=== PATIENT | female | born 1950 | race African-American/Black ===

== ENCOUNTER 2016-08-06 17:25 | Inpatient (IN) | payer MEDICARE, OTHER ==
[~2016-08-06] VITALS: Ht 160 cm; Wt 102.3 kg
[~2016-08-06 17:25] MED LIST: ARIP10TA13 PO; ASPI81TA3 PO; BACL10TA PO; BENA10TA48 PO; CELE200C PO; LETR2.5T PO; LORA10CA PO; TRAZ150T65 PO; ZOF8 PO
--- NOTE | 2016-08-06 17:34 | ERA ---
ER Documentation Chief Complaint Date/Time DATE: 08/06/16 TIME: 17:33 Chief Complaint Chest pain HPI The patient is a 65-year-old female, presenting to the ER because of left-sided chest pain that is associated with shortness of breath for the last couple days. She went to the clinic where she was transferred to the ER. She was treated by EMS with aspirin 160 mg p.o. and 2 nitroglycerin spray with some response. The chest pain is worse with movement and with cough. She denies chest pain with exertion of vomiting or diaphoresis. She denies abdominal pain , vomiting, dysuria, diarrhea. She does not smoke nor drink Past medical history: Hypertension, diabetes mellitus Past surgical history: Left lumpectomy, tubal ligation ROS All systems reviewed and are negative except as per history of present illness. Medications Home Meds Reported Medications [Combivent 18-103G] No Conflict Check, 2 PUFF PO BID 08/06/16 Bupropion Hcl* (Wellbutrin XL*) 150 Mg Tab.sr.24h, 150 MG PO DAILY, TAB.SA 08/06/16 Celecoxib* (Celebrex*) 200 Mg Capsule, 200 MG PO BID, CAP 08/06/16 Mometasone-Formoterol (Dulera) 200-5 Mcg/Inh - 13 Gm Hfa.aer.ad, 2 PUFFS INHALATION BID, #1 INHALER 08/06/16 Albuterol Sulfate* (Albuterol Sulfate* Neb) 0.083%-3 Ml Neb, 2.5 MG NEB BID, # 30 VIAL 08/06/16 Letrozole* (Letrozole*) 2.5 Mg Tablet, 2.5 MG PO DAILY, TAB 08/06/16 Trazodone Hcl* (Trazodone Hcl*) 50 Mg Tablet, 25 MG PO QHS, #30 TAB 08/06/16 Bisacodyl* (Bisacodyl*) 5 Mg Tablet.dr, 5 MG PO DAILY, TAB 08/06/16 Losartan Potassium* (Losartan Potassium*) 25 Mg Tablet, 25 MG PO DAILY, TAB 08/06/16 Calcium Carbonate/Vitamin D3 (Os-Jose 500-Vit D3 200 Caplet) 1 Each Tablet, 2 TAB PO DAILY, TAB 08/06/16 Abacavir/Dolutegravir/Lamivudi (Triumeq Tablet) 1 Each Tablet, 1 EACH PO DAILY, TAB [id number] 08/06/16 Aspirin* (Aspirin* Chew) 81 Mg Tab.chew, 81 MG PO DAILY, TAB.CHEW 08/06/16 Fluconazole* (Fluconazole*) 100 Mg Tablet, 100 MG PO DAILY, TAB 08/06/16 Insulin Glargine* (Lantus*) 100 Unit/Ml Soln, 20 UNIT SC QHS, #1 VIAL 08/06/16 Discontinued Reported Medications Benazepril Hcl* (Benazepril Hcl*) 10 Mg Tablet, 10 MG PO DAILY, TAB 01/08/14 Loratadine* (Claritin*) 10 Mg Capsule, 10 MG PO DAILY, CAP 01/08/14 Trazodone Hcl* (Trazodone Hcl*) 150 Mg Tablet, 150 MG PO HS, TAB 01/08/14 Letrozole* (Letrozole*) 2.5 Mg Tablet, 2.5 MG PO DAILY, TAB 01/08/14 Celecoxib* (Celebrex*) 200 Mg Capsule, 200 MG PO BID, CAP 01/08/14 Aspirin* (Aspirin* Chew) 81 Mg Tab.chew, 81 MG PO DAILY, TAB.CHEW 01/08/14 Aripiprazole* (Abilify*) 10 Mg Tablet, 10 MG PO DAILY 10/10/12 Ondansetron Hcl* (Zofran*) 8 Mg Tab, 8 MG PO DAILY 05/12/12 Baclofen* (Baclofen*) 10 Mg Tablet, 10 MG PO DAILY 05/07/12 Allergies Allergies: Coded Allergies: ketorolac (Verified Adverse Reaction, Intermediate, MOUTH SORES, 08/06/16) PMhx/Soc History of Surgery: Yes (LUMPECTOMY,TUBAL LIGATION,ABD HERNIA REPAIR) Anesthesia Reaction: No Hx Neurological Disorder: No Hx Respiratory Disorders: No Hx Cardiac Disorders: Yes (HTN) Hx Psychiatric Problems: No Hx Miscellaneous Medical Probl: Yes (DM) Hx Alcohol Use: No Hx Substance Use: No Hx Tobacco Use: No Smoking Status: Former smoker Physical Exam Vitals Vital Signs Date Time Temp Pulse Resp B/P Pulse Ox O2 Delivery O2 Flow Rate FiO2 08/06/16 18:55 71 18 132/67 100 Nasal Cannula 3.0 08/06/16 17:58 Nasal Cannula 2 Physical Exam Const: No acute distress. Head: Atraumatic. Eyes: Normal Conjunctiva. ENT: Normal External Ears, Nose and Mouth. Neck: Full range of motion. No meningismus. Resp: Clear to auscultation bilaterally. Cardio: Regular rate and rhythm, no murmurs. Abd: Soft, non distended, normal bowel sounds, non tender. Skin: No petechiae or rashes. Back: No midline or flank tenderness. Ext: No cyanosis, or edema. Neur: Awake and alert. No focal deficit Psych: Normal Mood and Affect. Result Diagram: 08/06/16181908/06/161819 Results 24 hrs Laboratory Tests Test 08/06/16 18:20 White Blood Count 5.610^3/ul Red Blood Count 4.0110^6/ul Hemoglobin 12.5g/dl Hematocrit 37.4% Mean Corpuscular Volume 93.3fl Mean Corpuscular Hemoglobin 31.2pg Mean Corpuscular Hemoglobin Concent 33.4g/dl Red Cell Distribution Width 13.1% Platelet Count 30766^3/UL Mean Platelet Volume 8.4fl Neutrophils % 65.3% Lymphocytes % 23.0% Monocytes % 8.8% Eosinophils % 2.0% Basophils % 0.2% Nucleated Red Blood Cells % 0.0/100WBC Neutrophils # 3.710^3/ul Lymphocytes # 1.310^3/ul Monocytes # 0.510^3/ul Eosinophils # 0.110^3/ul Basophils # 0.010^3/ul Nucleated Red Blood Cells # 0.010^3/ul Prothrombin Time 12.6Sec Prothrombin Time Ratio 1.0 INR International Normalized Ratio 0.94 Activated Partial Thromboplast Time 26.0Sec Sodium Level 138mmol/L Potassium Level 4.2mmol/L Chloride Level 104mmol/L Carbon Dioxide Level 23mmol/L Anion Gap 15 Blood Urea Nitrogen 14mg/dl Creatinine 0.86mg/dl Glucose Level 233mg/dl Calcium Level 9.2mg/dl Troponin I < 0.012ng/ml Current Medications Medications (Trade) Dose Ordered Sig/Karl Route PRN Reason Start Time Stop Time Status Last Admin Dose Admin Morphine Sulfate (morphine) 2 mg ONCE STAT IV 08/06/16 17:35 08/06/16 17:36 DC 08/06/16 17:53 Ondansetron HCl (Zofran Inj) 4 mg ONCE STAT IV 08/06/16 17:35 08/06/16 17:36 DC 08/06/16 17:52 Morphine Sulfate (morphine) 4 mg ONCE STAT IV 08/06/16 19:11 08/06/16 19:13 DC 08/06/16 19:39 Ondansetron HCl (Zofran Inj) 4 mg ONCE STAT IV 08/06/16 19:11 08/06/16 19:13 DC 08/06/16 19:39 Procedures/[place] [address] Radiology Main Line: [phone] DIAGNOSTIC IMAGING REPORT Patient: FRANKLYN IRIZARRY : 1950 Age: 65 Sex: F MR #: [id number] DOS: 08/06/16 1735 Ordering MD: CLEMENT JIMENEZ MD Location: E/R Room/Bed: PROCEDURE: XR Chest. CLINICAL INDICATION: Chest pain. TECHNIQUE: Single frontal view of the chest. COMPARISON: 12/09/2012. FINDINGS: Cardiomegaly. The lungs are clear. No signs of pleural fluid or pneumothorax are seen. The osseous structures and soft tissues are unremarkable. Surgical vascular clips over the left axilla region, similar in appearance examination 12/09/2012. IMPRESSION: No evidence for active cardiopulmonary disease. RPTAT: [facility] Physician Asif Date Time Electronically viewed and signed by Physician Asif on 08/06/2016 18:53 RS/ CC: CLEMENT JIMENEZ MD EKG: At 5:57 PM read by emergency physician Rate/Rhythm: Normal Sinus Rhythm 79 beats/min QRS, ST, T-waves: No ST elevation, no T inversion, PVC Impression: Abnormal EKG EKG: At 7:20 PM read by emergency physician Rate/Rhythm: Normal Sinus Rhythm 63 beats/min QRS, ST, T-waves: No ST elevation, no T inversion Impression: Normal EKG MEDICAL MAKING DECISION: The patient is a 64-year-old female with multiple cardiac risk factors, presenting with acute chest pain that is concerning for ACS. She was treated with morphine 2 mg IV, 4 mg IV for pain and Zofran 4 mg IV 2 for nausea with good response. The differential diagnoses considered include but are not limited to acute coronary syndrome, acute myocardial infarction, pericarditis, pulmonary embolism , aortic dissection, pneumonia, pleural effusion, pneumothorax, GERD, chest wall pain. Departure Diagnosis: Primary Impression: Chest pain Condition: Stable Comments I discussed the findings with the patient. I discussed the patient with the on- call hospitalist Dr. Brambila at 8:50 PM who was made aware of the lab, the treatment, the patient condition. The patient is admitted to telemetry CLEMENT JIMENEZ MD August 06, 2016 17:34
[2016-08-06] MEDS ORDERED: morphine 2 MG INJ IV STA (17:35)
[2016-08-06] MEDS ORDERED: ONDANSETRON 4 MG INJ IV STA ×2 (17:35→19:11)
[2016-08-06 18:28] LABS: ADD SCAN DIFF NO
[2016-08-06 18:30] LABS: BASOPHILS % 0.2 % (0.0-2.0); EOSINOPHILS # 0.1 10^3/ul (0.0-0.5); HEMATOCRIT 37.4 % (37.0-47.0); HEMOGLOBIN 12.5 g/dl (12.0-16.0); LYMPHOCYTES # 1.3 10^3/ul (0.8-2.9); MEAN CORPUSCULAR HEMOGLOBIN 31.2 pg (29.0-33.0); MEAN CORPUSCULAR HGB CONC 33.4 g/dl (32.0-37.0); MEAN CORPUSCULAR VOLUME 93.3 fl (82.0-101.0); MEAN PLATELET VOLUME 8.4 fl (7.4-10.4); MONOCYTE # 0.5 10^3/ul (0.3-0.9); MONOCYTES % 8.8 % (0.0-11.0); NEUTROPHIL # 3.7 10^3/ul (1.6-7.5); NEUTROPHILS % 65.3 % (39.0-77.0); PLATELET COUNT 265 10^3/UL (140-415); RED BLOOD COUNT 4.01 10^6/ul (4.20-5.40); RED CELL DISTRIBUTION WIDTH 13.1 % (11.5-14.5); WHITE BLOOD COUNT 5.6 10^3/ul (4.8-10.8)
[2016-08-06 18:44] LABS: INR 0.94; PROTIME 12.6 Sec (12.2-14.2)
[2016-08-06] MEDS ORDERED: LANT3I SC (18:48)
[2016-08-06] MEDS ORDERED: FLUC100T39 PO (18:49)
[2016-08-06] MEDS ORDERED: ASPI81TA3 PO (18:52)
[2016-08-06] MEDS ORDERED: ABAC1TAB12 PO (18:53)
--- NOTE | 2016-08-06 18:53 | RADRPT ---
PROCEDURE: XR Chest. CLINICAL INDICATION: Chest pain. TECHNIQUE: Single frontal view of the chest. COMPARISON: 12/09/2012. FINDINGS: Cardiomegaly. The lungs are clear. No signs of pleural fluid or pneumothorax are seen. The osseous s tructures and soft tissues are unremarkable. Surgical vascular clips over the left axilla region, similar in appearance examination 12/09/2012. IMPRESSION: No evidence for active cardiopulmonary disease. RPTAT: [facility] Physician Asif Date Time Electronically viewed and signed by Physician Asif on 08/06/2016 18:53 RS/
[2016-08-06] MEDS ORDERED: CALC1TAB32 PO (18:54)
[2016-08-06] MEDS ORDERED: LOSA25TA5 PO (18:54)
[2016-08-06] MEDS ORDERED: TRAZ50TA18 PO (18:55)
[2016-08-06] MEDS ORDERED: BISA5TAB6 PO (18:55)
[2016-08-06 18:56] LABS: CHLORIDE 104 mmol/L (97-110); POTASSIUM 4.2 mmol/L (3.5-5.1); SODIUM 138 mmol/L (135-144)
[2016-08-06] MEDS ORDERED: LETR2.5T PO (18:56)
[2016-08-06] MEDS ORDERED: ALBU2.5V3 NEB (18:56)
[2016-08-06] MEDS ORDERED: MOME13HF INHALATION (18:57)
[2016-08-06] MEDS ORDERED: CELE200C PO (18:58)
[2016-08-06] MEDS ORDERED: BUPR-75 PO (18:58)
[2016-08-06 18:59] LABS: ANION GAP 15 (8-16); BLOOD UREA NITROGEN 14 mg/dl (7-20); CARBON DIOXIDE 23 mmol/L (21-31); CREATININE 0.86 mg/dl (0.44-1.00); GLUCOSE 233 mg/dl (70-220)
[2016-08-06 19:00] LABS: CALCIUM 9.2 mg/dl (8.4-10.2)
[2016-08-06] MEDS ORDERED: COMBIVENT PO (19:08)
[2016-08-06] MEDS ORDERED: morphine 4 MG/ML VIAL IV STA (19:11)
[2016-08-06 19:16] LABS: TROPONIN-I < 0.012 ng/ml (0.00-0.12)
[2016-08-06 22:10] VITALS: BP 143/70; RESP 20
[2016-08-06 22:38] VITALS: PULSE 86
[2016-08-06 23:14] VITALS: Ht 160 cm; Wt 102.3 kg
[2016-08-06] MEDS ORDERED: IPRATROPIUM PO SCH (23:30)
[2016-08-06] MEDS ORDERED: ALBUTEROL PO SCH (23:30)
[2016-08-06] MEDS ORDERED: morphine 2 MG INJ IV PRN (23:45)
[2016-08-06] MEDS ORDERED: DEXTROSE 50% 50 ML SYRINGE IV PRN ×2 (23:45)
[2016-08-06] MEDS ORDERED: GLUCAGON 1 MG INJ IM PRN (23:45)
[2016-08-06] MEDS ORDERED: GLUCOSE GEL 15 GRAM TUBE PO PRN ×2 (23:45)
[2016-08-06] MEDS ORDERED: GLUCOSE GEL 15 GRAM TUBE BUCCAL PRN (23:45)
[2016-08-07] VITALS (12 sets, daily range): BP systolic 138–159; BP diastolic 63–77; PULSE 80–88; RESP 18–20
[2016-08-07] MEDS ORDERED: ACETAMINOPHEN 325 MG TAB PO PRN
[2016-08-07] MEDS ORDERED: ONDANSETRON 4 MG INJ IV PRN
[2016-08-07] MEDS ORDERED: NITROGLYCERIN (SL) 0.4 MG TAB SL PRN
[2016-08-07 00:53] LABS: TROPONIN-I < 0.012 ng/ml (0.00-0.12)
[2016-08-07 01:15] LABS: CK-MB 1.12 ng/ml (0.0-2.4); CREATINE KINASE 112 IU/L (23-200)
[2016-08-07] MEDS: HEPARIN 5,000 UNIT/0.5 ML VIAL SC SCH ×3 (01:41→21:10)
[2016-08-07] MEDS: ATORVASTATIN 20 MG TAB PO SCH ×2 (01:42→21:08)
[2016-08-07] MEDS: ACCU-CHEK XX SCH (02:00)
[2016-08-07] MEDS: INSULIN GLARGINE [LANtus] 3 ML PEN SC SCH ×2 (02:57→21:07)
--- NOTE | 2016-08-07 07:30 | HP ---
DATE OF ADMISSION: 08/06/2016 TIME SEEN: 2300. CHIEF COMPLAINT: Chest pain. HISTORY OF PRESENT ILLNESS: The patient is a 65-year-old female with a history of hypertension, merry betes, COPD, GERD, depression/anxiety, breast lumpectomy on letrozole who presented to the Emergency Department complaining of chest pain. Chest pain is left-sided with no radiation, associated with shortness of breath but no nausea, vomiting or diaphoresis. She did also report some dry cough whic h exacerbates the chest pain. She actually went to the clinic and from there she was transferred to the ER for evaluation. When she presented to the ER, blood pressure was 132/67, heart rate 71, respiratory rate 18, tempera ture 97.6, oxygen saturation 100% on 3 liters. CBC and BMP are unremarkable except a glucose of 333. First troponin is negative. EKG shows a normal sinus rhythm with a rate of [address]-T wave abnormalities. Chest x-ray shows clear lungs with no fluid and was essentially unremarkable. She was given Zo anuja and morphine in the ER and she had already been given aspirin by EMS. REVIEW OF SYSTEMS: A 12-point review of systems performed and negative except as mentioned in the HP I. PAST MEDICAL HISTORY: As per HPI. PAST SURGICAL HISTORY: Tubal ligation and hernia repair and lumpectomy. SOCIAL HISTORY: Denied a history of tobacco, alcohol, illicit drug use. ALLERGIES: TORADOL. HOME MEDICATIONS: 1. . 2. Albuterol. 3. Losartan. 4. Aspirin. 5. Bupropion. 6. Celecoxib. 7. Abacavir. 8. Dolutegravir. 9. ____. 10. Bupropion. 11. Trazodone. 12. Calcium. 13. Vitamin D. 14. Dulera. 15. Insulin. 16. Combivent. 17. Dulcolax. PHYSICAL EXAMINATION: VITAL SIGNS: Stable. GENERAL: No acute distress but looked initially slightly anxious and sleepy but arousable. HEENT: No obvious head deformity. Pupils react to light. Extraocular muscles intact. CARDIOVASCULAR: Regular rate and rhythm. No extra sounds. LUNGS: Clear. ABDOMEN: Soft, nontender, nondistended. Positive bowel sounds. EXTREMITIES: No edema. NEUROLOGIC: No focal deficits. LABORATORY: Glucose 333. Otherwise, CBC and BMP are within normal limits and first troponin is nega tive. IMAGING: Chest x-ray is unremarkable. IMPRESSION: 1. Chest pain, need to rule out acute coronary syndrome (ACS). 2. Diabetes with hyperglycemia. 3. History of chronic obstructive pulmonary disease (COPD). 4. History of depression/anxiety. 5. History of gastroesophageal reflux disease (GERD). PLAN: Continue telemetry monitoring. She will be placed on aspirin, beta mayank, statin and will be provided as needed nitroglycerin and morphine. We will trend her troponins. Initial EKG as ment ioned without ST-T wave abnormality. We will obtain a 2D echo and we will consider a cardiology con sult. In the meantime, we will continue her home medications with adjustment as needed. We will ad just the insulin for better glycemic control. We will check A1c, a fasting lipid and TSH in the [facility]. Further workup and management per clinical course. Dictated By: KIMBERLEE MANLEY/EUGENIE Conf#: [id number] DID#: [id number]
[2016-08-07 07:45] LABS: ADD SCAN DIFF NO
[2016-08-07 07:55] LABS: BASOPHILS % 0.7 % (0.0-2.0); EOSINOPHILS # 0.1 10^3/ul (0.0-0.5); EOSINOPHILS % 3.1 % (0.0-7.0); HEMATOCRIT 36.7 % (37.0-47.0); LYMPHOCYTES # 0.9 10^3/ul (0.8-2.9); LYMPHOCYTES % 19.6 % (15.0-51.0); MEAN CORPUSCULAR HGB CONC 32.7 g/dl (32.0-37.0); MEAN CORPUSCULAR VOLUME 94.8 fl (82.0-101.0); MEAN PLATELET VOLUME 8.2 fl (7.4-10.4); MONOCYTE # 0.4 10^3/ul (0.3-0.9); MONOCYTES % 8.7 % (0.0-11.0); NEUTROPHILS % 67.2 % (39.0-77.0); PLATELET COUNT 251 10^3/UL (140-415); RED BLOOD COUNT 3.87 10^6/ul (4.20-5.40); RED CELL DISTRIBUTION WIDTH 13.1 % (11.5-14.5); WHITE BLOOD COUNT 4.5 10^3/ul (4.8-10.8)
[2016-08-07] MEDS: INSULIN ASPART [NOVOLOG] 3 ML PEN SC SCH ×4 (08:09→21:12)
[2016-08-07 08:15] LABS: CHOL/HDL RATIO 3.8 RATIO; PHOSPHORUS 4.3 mg/dl (2.5-4.9)
[2016-08-07 08:15] LABS: CREATINE KINASE 95 IU/L (23-200)
[2016-08-07 08:16] LABS: ALBUMIN 3.4 g/dl (3.3-4.9); ALBUMIN/GLOBULIN RATIO 1.03; BILIRUBIN,INDIRECT 0.2 mg/dl (0-1.1); BILIRUBIN,TOTAL 0.2 mg/dl (0.2-1.3); CALCIUM 9.1 mg/dl (8.4-10.2); CREATININE 0.82 mg/dl (0.44-1.00); POTASSIUM 4.2 mmol/L (3.5-5.1); TOTAL PROTEIN 6.7 g/dl (6.1-8.1)
[2016-08-07 08:18] LABS: CK-MB 0.63 ng/ml (0.0-2.4)
[2016-08-07] MEDS: ALBUTEROL 0.083% (NEB) 2.5 MG/3 ML AMP NEB SCH ×2 (08:24→19:24)
[2016-08-07 08:25] LABS: TROPONIN-I < 0.012 ng/ml (0.00-0.12)
[2016-08-07 08:41] LABS: THYROID STIMULATING HORMONE 2.47 MIU/L (0.465-4.680)
[2016-08-07] MEDS: SALMETEROL/FLUTICASONE 250/50 INHA INH SCH ×2 (09:00→21:09)
[2016-08-07] MEDS: LETROZOLE 2.5 MG TAB PO SCH (09:34)
[2016-08-07] MEDS: ABACAVIR/LAMIVUDINE TAB PO SCH (09:36)
[2016-08-07] MEDS: DOLUTEGRAVIR SODIUM 50 MG TABLET PO SCH (09:37)
[2016-08-07] MEDS: ASPIRIN 81 MG TAB PO SCH (09:37)
[2016-08-07] MEDS: FLUCONAZOLE 100 MG TAB PO SCH (09:37)
[2016-08-07] MEDS: BISACODYL (EC) 5 MG TAB PO SCH (09:37)
[2016-08-07] MEDS: BUPROPION (XL) 150 MG TAB PO SCH (09:37)
[2016-08-07] MEDS: CALCIUM/VITAMIN D (500/200) TAB PO SCH (09:38)
[2016-08-07] MEDS: LOSARTAN 25 MG TAB PO SCH (09:38)
[2016-08-07] MEDS: RANITIDINE 150 MG TAB PO SCH ×2 (14:00→23:19)
[2016-08-07] MEDS ORDERED: ALBUTEROL/IPRATROPIUM (NEB) 3 ML AMP HHN PRN (14:00)
[2016-08-07] MEDS ORDERED: traZODone 50 MG TAB PO SCH (21:00)
[2016-08-08] VITALS (10 sets, daily range): BP systolic 108–167; BP diastolic 53–79; PULSE 82–89; RESP 16–19
[2016-08-08] MEDS: ACCU-CHEK XX SCH (02:00)
[2016-08-08 07:53] LABS: ADD SCAN DIFF NO
[2016-08-08] MEDS: INSULIN ASPART [NOVOLOG] 3 ML PEN SC SCH ×3 (08:00→17:10)
[2016-08-08 08:18] LABS: BASOPHILS % 0.2 % (0.0-2.0); EOSINOPHILS # 0.1 10^3/ul (0.0-0.5); EOSINOPHILS % 2.2 % (0.0-7.0); HEMATOCRIT 37.1 % (37.0-47.0); HEMOGLOBIN 12.1 g/dl (12.0-16.0); LYMPHOCYTES # 1.1 10^3/ul (0.8-2.9); LYMPHOCYTES % 22.9 % (15.0-51.0); MEAN CORPUSCULAR HEMOGLOBIN 31.1 pg (29.0-33.0); MEAN CORPUSCULAR HGB CONC 32.6 g/dl (32.0-37.0); MEAN CORPUSCULAR VOLUME 95.4 fl (82.0-101.0); MEAN PLATELET VOLUME 8.6 fl (7.4-10.4); MONOCYTE # 0.4 10^3/ul (0.3-0.9); MONOCYTES % 9.6 % (0.0-11.0); NEUTROPHIL # 2.9 10^3/ul (1.6-7.5); NEUTROPHILS % 63.8 % (39.0-77.0); PLATELET COUNT 247 10^3/UL (140-415); RED BLOOD COUNT 3.89 10^6/ul (4.20-5.40); RED CELL DISTRIBUTION WIDTH 12.9 % (11.5-14.5); WHITE BLOOD COUNT 4.6 10^3/ul (4.8-10.8)
[2016-08-08] MEDS ORDERED: REGADENOSON 0.4 MG/5 ML SYG ONE (08:30)
[2016-08-08 08:45] LABS: POTASSIUM 4.1 mmol/L (3.5-5.1)
[2016-08-08] MEDS: ALBUTEROL 0.083% (NEB) 2.5 MG/3 ML AMP NEB SCH (08:47)
[2016-08-08 08:48] LABS: CALCIUM 9.3 mg/dl (8.4-10.2); CREATININE 0.88 mg/dl (0.44-1.00)
[2016-08-08] MEDS: SALMETEROL/FLUTICASONE 250/50 INHA INH SCH (09:00)
--- NOTE | 2016-08-08 10:11 | CONS ---
Date/Time of Note Date/Time of Note DATE: 08/08/16 TIME: 10:10 Assessment/Plan Assessment/Plan Additional Assessment/Plan 1. Chest pain, need to rule out acute coronary syndrome (ACS). 2. Diabetes with hyperglycemia. 3. History of chronic obstructive pulmonary disease (COPD). 4. History of depression/anxiety. 5. History of gastroesophageal reflux disease (GERD). -normal trops, ekg and very atypical hx -cardiolyte done today -if nromal, d/c planning Consultation Date/Type/Reason Admit Date/Time August 06, 2016 at 20:56 Hx of Present Illness The patient is a 65-year-old female with a history of hypertension, diabetes, COPD, GERD, depression/anxiety, breast lumpectomy on letrozole who presented to the Emergency Department complaining of chest pain. Chest pain is left-sided with no radiation, associated with shortness of breath but no nausea, vomiting or diaphoresis. She did also report some dry cough which exacerbates the chest pain. She actually went to the clinic and from there she was transferred to the ER for evaluation. Her pain is atypiocal in nature with numbness and constant pain that is nonexertional Social History Smoking Status: Former smoker Exam/Review of Systems Vital Signs Vitals Vital Signs Date Time Temp Pulse Resp B/P Pulse Ox O2 Delivery O2 Flow Rate FiO2 08/08/16 07:22 98.0 76 18 108/53 100 08/07/16 19:28 Nasal Cannula 2.0 Intake and Output 08/07/16 08/07/16 08/08/16 15:00 23:00 07:00 Intake Total 650 ml 450 ml Balance 650 ml 450 ml Results Result Diagram: 08/08/16 0640 08/08/16 0640 Results 24 hrs Laboratory Tests Test 08/07/16 12:16 08/07/16 15:40 08/07/16 17:33 08/07/16 21:06 Bedside Glucose 218 200 213 Troponin I < 0.012 Test 08/07/16 22:25 08/08/16 02:43 08/08/16 06:40 08/08/16 08:05 Magnesium Level 1.7 Troponin I < 0.012 Bedside Glucose 203 221 H White Blood Count 4.6 L Red Blood Count 3.89 L Hemoglobin 12.1 Hematocrit 37.1 Mean Corpuscular Volume 95.4 Mean Corpuscular Hemoglobin 31.1 Mean Corpuscular Hemoglobin Concent 32.6 Red Cell Distribution Width 12.9 Platelet Count 247 Mean Platelet Volume 8.6 Neutrophils % 63.8 Lymphocytes % 22.9 Monocytes % 9.6 Eosinophils % 2.2 Basophils % 0.2 Nucleated Red Blood Cells % 0.0 Neutrophils # 2.9 Lymphocytes # 1.1 Monocytes # 0.4 Eosinophils # 0.1 Basophils # 0.0 Nucleated Red Blood Cells # 0.0 Sodium Level 137 Potassium Level 4.1 Chloride Level 105 Carbon Dioxide Level 26 Anion Gap 10 Blood Urea Nitrogen 14 Creatinine 0.88 Glucose Level 205 Calcium Level 9.3 Medications Medications Current Medications Aspirin (Aspirin) 81 mg DAILY PO Last administered on 08/07/16 09:37; Admin Dose 81 MG; Start 08/07/16 at 09:00 Bisacodyl (Dulcolax) 5 mg DAILY PO Last administered on 08/07/16 09:37; Admin Dose 5 MG; Start 08/07/16 at 09:00 Bupropion HCl (Wellbutrin Xl) 150 mg DAILY PO Last administered on 08/07/16 09 :37; Admin Dose 150 MG; Start 08/07/16 at 09:00 Calcium/Vitamin D (Oyster Shell/ Vit-D (500/200)) 2 tab DAILY PO Last administered on 08/07/16 09:38; Admin Dose 2 TAB; Start 08/07/16 at 09:00 Fluconazole (Diflucan) 100 mg DAILY PO Last administered on 08/07/16 09:37; Admin Dose 100 MG; Start 08/07/16 at 09:00 Insulin Glargine (Lantus) 20 unit QHS SC Last administered on 08/07/16 21:07; Admin Dose 20 UNIT; Start 08/07/16 at 01:37 Letrozole (Femara) 2.5 mg DAILY PO Last administered on 08/07/16 09:34; Admin Dose 2.5 MG; Start 08/07/16 at 09:00 Losartan Potassium (Cozaar) 25 mg DAILY PO Last administered on 08/07/16 09:38 ; Admin Dose 25 MG; Start 08/07/16 at 09:00 Trazodone HCl (Desyrel) 25 mg QHS PO Last administered on 08/07/16 21:08; Admin Dose 25 MG; Start 08/07/16 at 21:00 Abacavir/ Lamivudine (Epzicom) 1 tab DAILY PO Last administered on 08/07/16 09 :36; Admin Dose 1 TAB; Start 08/07/16 at 09:00 Salmeterol Xinafoate/ Fluticasone (Advair 250/50 Diskus) 1 inh BID INH Last administered on 08/07/16 21:09; Admin Dose 1 INH; Start 08/07/16 at 09:00 Miscellaneous Information 1 ea NOTE XX ; Start 08/06/16 at 23:45 Glucose (Glutose) 15 gm Q15M PRN PO DECREASED GLUCOSE; Start 08/06/16 at 23:45 Glucose (Glutose) 22.5 gm Q15M PRN PO DECREASED GLUCOSE; Start 08/06/16 at 23: 45 Dextrose (D50w Syringe) 25 ml Q15M PRN IV DECREASED GLUCOSE; Start 08/06/16 at 23:45 Dextrose (D50w Syringe) 50 ml Q15M PRN IV DECREASED GLUCOSE; Start 08/06/16 at 23:45 Glucagon (Glucagen) 1 mg Q15M PRN IM DECREASED GLUCOSE; Start 08/06/16 at 23:45 Glucose (Glutose) 15 gm Q15M PRN BUCCAL DECREASED GLUCOSE; Start 08/06/16 at 23 :45 Atorvastatin Calcium (Lipitor) 20 mg HS PO Last administered on 08/07/16 21:08 ; Admin Dose 20 MG; Start 08/06/16 at 23:40 Nitroglycerin (Nitroglycerin (Sl Tab) 0.4 Mg) 1 tab Q5M PRN SL ANGINA; Start at 00:00 Morphine Sulfate (morphine) 2 mg Q4H PRN IV PAIN LEVEL 6-10 Last administered on 08/07/16 17:50; Admin Dose 2 MG; Start 08/06/16 at 23:45 Acetaminophen (Tylenol Tab) 650 mg Q6H PRN PO PAIN AND OR ELEVATED TEMP; Start 08/07/16 at 00:00 Ondansetron HCl (Zofran Inj) 4 mg Q6H PRN IV NAUSEA AND/OR VOMITING; Start at 00:00 Heparin Sodium (Porcine) (Heparin (5000 Units/0.5 ml)) 5,000 unit BID SC Last administered on 08/07/16 21:10; Admin Dose 5,000 UNIT; Start 08/07/16 at 00:00 Diagnostic Test (Pha) (Accu-Chek) 1 ea 02 XX ; Start 08/07/16 at 02:00 Dolutegravir Sodium (Tivicay) 50 mg DAILY PO Last administered on 08/07/16 09: 37; Admin Dose 50 MG; Start 08/07/16 at 09:00 Ranitidine HCl (Zantac) 150 mg BID PO Last administered on 08/07/16 23:19; Admin Dose 150 MG; Start 08/07/16 at 14:00 ELLIS ORTEGA MD August 08, 2016 10:11
[2016-08-08] MEDS: FLUCONAZOLE 100 MG TAB PO SCH (10:32)
[2016-08-08] MEDS: BISACODYL (EC) 5 MG TAB PO SCH (10:32)
[2016-08-08] MEDS: ASPIRIN 81 MG TAB PO SCH (10:32)
[2016-08-08] MEDS: BUPROPION (XL) 150 MG TAB PO SCH (10:33)
[2016-08-08] MEDS: LETROZOLE 2.5 MG TAB PO SCH (10:33)
[2016-08-08] MEDS: DOLUTEGRAVIR SODIUM 50 MG TABLET PO SCH (10:34)
[2016-08-08] MEDS: CALCIUM/VITAMIN D (500/200) TAB PO SCH (10:34)
[2016-08-08] MEDS: ABACAVIR/LAMIVUDINE TAB PO SCH (10:34)
[2016-08-08] MEDS: RANITIDINE 150 MG TAB PO SCH (10:35)
[2016-08-08] MEDS: LOSARTAN 25 MG TAB PO SCH (10:35)
[2016-08-08] MEDS: HEPARIN 5,000 UNIT/0.5 ML VIAL SC SCH (10:37)
--- NOTE | 2016-08-08 12:03 | RADRPT ---
PROCEDURE: Lexiscan myocardial perfusion study CLINICAL INDICATION: 65 -year-old patient complaining of chest pain. TECHNIQUE: Lexiscan 0.4 mg intravenously separate acquisition gated myocardial perfusion SPECT usi ng Tc 99m Myoview approximately 30.0 mCi intravenously at stress and Tc-99m Myoview, approximately 1 0.0 mCi intravenously at rest was performed using the rest/stress sequence. Poststress Myoview SPEC T images were obtained in the supine position. COMPARISON: May 17, 2012. FINDINGS: Perfusion images reveal no evidence of perfusion defects. Lexiscan post stress gated SPECT images demonstrate no wall motion abnormalities. IMPRESSION: 1. No evidence of new perfusion defects. 2. No wall motion abnormalities. 3. The left ventricle ejection fraction at stress is 56% (prior EF was 37%). RPTAT: QQ .Sarah Beth Meehan MD, Date Time Electronically viewed and signed by .Sarah Beth Meehan MD, on 08/08/2016 12:03 .L/
--- NOTE | 2016-08-08 12:47 | CARRPT ---
[facility]: Chest pain. FINDINGS: 1. Baseline EKG normal sinus rhythm. 2. Normal clinical response. 3. No EKG changes consistent with ischemia. 4. No arrhythmias. 5. Image results are pending. Dictated By: ELLIS ORTEGA MD, MS/EUGENIE Conf#: [id number] DID#: [id number]
--- NOTE | 2016-08-08 13:15 | PDOCDIS ---
Discharge Instructions CONDITION Patient Condition: Stable HOME CARE INSTRUCTIONS: Diet Instructions: Low Fat /Cholesterol ACTIVITY: Activity Restrictions: Slowly Increase Activity FOLLOW UP/APPOINTMENTS Appointments Please take your medications, see your doctor in the clinic in 1 week. MARE SPENCER August 08, 2016 13:15
--- NOTE | 2016-08-08 13:21 | PN ---
DATE: 08/07/2016 SUBJECTIVE: The patient has less chest pain, but still some mild left arm numbness and tingling. N o acute events overnight. OBJECTIVE: VITAL SIGNS: Stable. GENERAL: The patient is sitting up in bed, answering questions appropriately. No acute distress, a lert. HEENT: Pupils equal, round, react to light. Extraocular muscles intact. NECK: Supple, no thyromegaly. LUNGS: Clear to auscultation bilaterally. CARDIOVASCULAR: S1, S2 heard. No rubs or gallops. ABDOMEN: Soft, nontender, nondistended. Normal bowel sounds. No rebound or guarding. EXTREMITIES: No lower extremity edema bilaterally. NEUROLOGIC: No focal deficits. LABORATORY DATA: Comprehensive metabolic panel is normal. Troponin is negative x3. CBC is normal. Chest x-ray was negative for acute cardiopulmonary disease. ASSESSMENT AND PLAN: A 65-year-old female, prior history of hypertension, diabetes, chronic obstruc tive pulmonary disease, gastroesophageal reflux disease, depression and anxiety, who presents with c hest pain symptoms, rule out for acute coronary syndrome. 1. Chest pain. Again, she has ruled out for acute coronary syndrome. Troponin is negative x3. Fo llow up echocardiogram results. We will get a cardiology consult given her positive family history and continued left arm numbness symptoms. The patient would likely benefit from a stress test. Her last stress apparently was in 2014. She does not remember the results of that. Continue aspirin f or now and losartan. 2. Diabetes with hyperglycemia. Continue to monitor for now. Follow up A1c, sliding scale insulin . 3. Chronic obstructive pulmonary disease. Add DuoNeb p.r.n. No present issues. 4. History of depression, anxiety. Ativan p.r.n. 5. History of gastroesophageal reflux disease. Add H2 mayank. 6. Deep venous thrombosis prophylaxis. Heparin subcutaneously. 7. Hypertension. Continue to monitor for now. Continue current medications. Dictated By: MARE BRADSHAW Conf#: [id number] DID#: [id number]
--- NOTE | 2016-08-08 15:05 | DS ---
DATE OF ADMISSION: 08/06/2016 DATE OF DISCHARGE: 08/08/2016 This is a 65-year-old female originally admitted on 07/13____, being discharged home on 08/09/19 17. The patient came in initially with chest pain. She was admitted to telemetry floor. She has a prior history of hypertension, diabetes, and COPD. She was admitted. She has a positive family hi story of cardiac disease. She ruled out for acute coronary syndrome and she underwent a cardiac str ess test by the cardiology team after they saw the patient, and there was a negative stress test res ult, both the stress portion and the nuclear portion. Afterwards, patient's chest pain symptoms imp roved. She was able to ambulate and tolerate a p.o. diet, and she will be discharged home today in improved condition. DISCHARGE MEDICATIONS: She will be sent with the following medications: 1. Triumeq 1 tab daily. 2. Albuterol sulfate 2.5 mg nebulizer b.i.d. 3. Aspirin 81 mg daily. 4. Dulcolax 5 mg daily. 5. Wellbutrin XL 150 mg daily. 6. Calcium carbonate/vitamin D3 two tabs daily. 7. Celebrex 200 mg b.i.d. 8. Fluconazole 100 mg daily. 9. Lantus 20 units subQ at bedtime. 10. Letrozole 2.5 mg daily. 11. Losartan 25 mg daily. 12. Dulera 2 puffs inhaled b.i.d. 13. Trazodone 25 mg at bedtime. 14. Combivent 2 puffs inhaled b.i.d. She needs to follow up with primary care doctor in the clinic in next 1 week. FINAL DIAGNOSES: 1. Chest pain, ruled out for acute coronary syndrome with negative cardiac stress test. 2. History of breast lumpectomy, on letrozole. 3. Gastroesophageal reflux disease. 4. Chronic obstructive pulmonary disease. 5. Type 2 diabetes. 6. Essential hypertension. 7. Depression and anxiety. 8. History of obesity Time spent discharging patient 40 minutes. Dictated By: MARE BRADSHAW Conf#: [id number] DID#: [id number]
== END 2016-08-08 18:05 | disposition home or self-care (01) | DRG 313 ==
LOC: E/R 17:25 → MS4 20:56
PROVIDERS: ADMIT Internal Medicine; ATTEND Internal Medicine
DX: R07.9 Chest pain, unspecified (principal); E11.65 Type 2 diabetes mellitus with hyperglycemia; J44.9 Chronic obstructive pulmonary disease, unspecified; I10 Essential (primary) hypertension; K21.9 Gastro-esophageal reflux disease without esophagitis; F32.9 Major depressive disorder, single episode, unspecified; F41.9 Anxiety disorder, unspecified; Z79.82 Long term (current) use of aspirin; Z79.4 Long term (current) use of insulin; Z87.891 Personal history of nicotine dependence
CPT/HCPCS: 71010; 78452; 80048; 80053; 80061; 82550; 82553; 82962; 83036; 83735; 84100; 84443; 84484; 85025; 85610; 85730; 93005; 93017; 94640; 94664; 96374; 96375; 96376; A9500; A9505; J1644; J1815; J2270; J2405; J2785

== ENCOUNTER 2016-10-22 06:36 | Day surgery (SDC) | payer MEDICARE, OTHER ==
[~2016-10-22] VITALS: Ht 160 cm; Wt 100.3 kg
[~2016-10-22 06:36] MED LIST changes: +ABAC1TAB12 PO; +ALBU2.5V3 NEB; -ARIP10TA13 PO; -BACL10TA PO; -BENA10TA48 PO; +BISA5TAB6 PO; +BUPR-75 PO; +CALC1TAB32 PO; +COMBIVENT PO; +FLUC100T39 PO; +LANT3I SC; -LORA10CA PO; +LOSA25TA5 PO; +MOME13HF INHALATION; -TRAZ150T65 PO; +TRAZ50TA18 PO; -ZOF8 PO
[2016-10-22] MEDS ORDERED: LANTUS (07:36)
[2016-10-22] MEDS ORDERED: TRAZADONE (07:36)
[2016-10-22] MEDS ORDERED: MIRTAZAPINE (07:36)
[2016-10-22] MEDS ORDERED: CELECOXIB (07:36)
[2016-10-22] MEDS ORDERED: DULERA (07:36)
[2016-10-22] MEDS ORDERED: TRIUMEQ (07:36)
[2016-10-22] MEDS ORDERED: LOSARTAN (07:36)
[2016-10-22] MEDS ORDERED: INSULIN PEN (07:36)
[2016-10-22] MEDS ORDERED: BUPROPION (07:36)
== END 2016-10-22 08:53 | disposition home or self-care (01) ==
LOC: GIL 06:36
PROVIDERS: ATTEND Internal Medicine Gastroenterology
DX: R10.13 Epigastric pain (principal); Z53.9 Procedure and treatment not carried out, unspecified reason

== ENCOUNTER 2017-06-21 12:16 | Emergency (ER) | END 2017-06-21 16:43 | disposition home or self-care (01) ==